=== PATIENT | female | born 1980 | race Caucasian/White ===

== ENCOUNTER 2017-11-17 23:02 | Emergency (ER) | payer OTHER ==
[~2017-11-17] VITALS: Ht 177.8 cm; Wt 149.7 kg
[~2017-11-17 23:02] MED LIST: ATENOLOL 100MG100 MG PO; IBUPROFEN 800800 M1 PO; NORCO 5-325 TA1 EACH PO; ULTRAM 50MG TAB50 MG PO
[2017-11-17] MEDS ORDERED: ATENOLOL 25 MG25 M1 PO (23:05)
[2017-11-17] MEDS ORDERED: WELLBUTRIN SR100 MG PO (23:05)
[2017-11-17] MEDS ORDERED: HYDROCHLOROTHIA25 M2 PO (23:05)
[2017-11-17] MEDS ORDERED: CLEOCIN HCL150 MG PO (23:21)
[2017-11-17] MEDS ORDERED: NORCO 5-325 TA1 EACH PO (23:21)
== END 2017-11-17 23:35 | disposition home or self-care (01) ==
LOC: ER 23:02
DX: K02.9 Dental caries, unspecified (principal); F17.210 Nicotine dependence, cigarettes, uncomplicated; Z90.710 Acquired absence of both cervix and uterus; Z90.49 Acquired absence of other specified parts of digestive tract; Z88.1 Allergy status to other antibiotic agents; Z88.8 Allergy status to other drugs, medicaments and biological substances

== ENCOUNTER 2017-12-17 01:03 | Emergency (ER) | payer OTHER ==
[~2017-12-17] VITALS: Ht 177.8 cm; Wt 145.2 kg
[~2017-12-17 01:03] MED LIST changes: +ATENOLOL 25 MG25 M1 PO; +CLEOCIN HCL150 MG PO; +HYDROCHLOROTHIA25 M2 PO; +WELLBUTRIN SR100 MG PO
[2017-12-17] MEDS ORDERED: MOBIC15 MG PO ×2 (03:04→03:06)
[2017-12-17] MEDS ORDERED: GUAIFEN-CODEINE10 ML PO ×2 (03:04→03:06)
== END 2017-12-17 03:17 | disposition home or self-care (01) ==
LOC: ER 01:03
DX: J06.9 Acute upper respiratory infection, unspecified (principal); I10 Essential (primary) hypertension; F17.210 Nicotine dependence, cigarettes, uncomplicated; Z90.49 Acquired absence of other specified parts of digestive tract; Z90.710 Acquired absence of both cervix and uterus; Z88.1 Allergy status to other antibiotic agents; Z88.8 Allergy status to other drugs, medicaments and biological substances

== ENCOUNTER 2017-12-20 07:34 | Emergency (ER) | payer OTHER ==
[~2017-12-20] VITALS: Ht 177.8 cm; Wt 145.2 kg
[~2017-12-20 07:34] MED LIST changes: +GUAIFEN-CODEINE10 ML PO; +MOBIC15 MG PO
== END 2017-12-20 09:43 | disposition home or self-care (01) ==
LOC: ER 07:34
DX: J06.9 Acute upper respiratory infection, unspecified (principal); I10 Essential (primary) hypertension; F17.210 Nicotine dependence, cigarettes, uncomplicated; Z90.710 Acquired absence of both cervix and uterus; Z90.49 Acquired absence of other specified parts of digestive tract; Z88.6 Allergy status to analgesic agent; Z88.1 Allergy status to other antibiotic agents; Z88.8 Allergy status to other drugs, medicaments and biological substances

== ENCOUNTER 2018-03-24 20:38 | Emergency (ER) | payer OTHER ==
[~2018-03-24] VITALS: Ht 177.8 cm; Wt 145.2 kg
[2018-03-24 21:12] LABS: ABSOLUTE NEUTROPHILS 4.4 thou/uL (1.4-8.2); BASOPHILS 1.5 % (0.0-2.0); EOSINOPHILS 1.6 % (0.0-3.0); HEMATOCRIT 41.3 % (37.0-47.0); MCH 31.4 pg (26.0-34.0); MCV 92.4 fL (80.0-100.0); PLATELET COUNT 231 thou/uL (150-400); POLYS 64.9 % (36.0-66.0); RBC 4.47 mil/uL (4.20-5.00); RDW 13.7 % (10.5-14.5); WBC 6.8 thou/uL (4.0-11.0)
[2018-03-24 21:20] LABS: CALCIUM 8.8 mg/dL (8.5-10.1)
[2018-03-24 21:25] LABS: ALBUMIN 3.6 g/dL (3.4-5.0); TOTAL BILIRUBIN 0.2 mg/dL (<0.1-1.0); TOTAL PROTEIN 7.6 g/dL (6.4-8.2)
[2018-03-24 22:29] LABS: URINE BILIRUBIN NEGATIVE (Negative); URINE BLOOD NEGATIVE (Negative); URINE CLARITY CLEAR; URINE COLOR YELLOW; URINE GLUCOSE-RANDOM* NEGATIVE (Negative); URINE KETONES NEGATIVE (Negative); URINE LEUKOCYTES-REFLEX NEGATIVE (Negative); URINE NITRITE-REFLEX NEGATIVE (Negative); URINE PROTEIN (DIPSTICK) NEGATIVE (Negative); URINE SPECIFIC GRAVITY >= 1.030 (1.005-1.035); URINE UROBILINOGEN 0.2 E.U./dl (0.2-1.0)
[2018-03-24] MEDS ORDERED: NAPROSYN500 MG PO (22:47)
[2018-03-24 23:50] VITALS: BP 124/67
== END 2018-03-24 23:50 | disposition home or self-care (01) ==
LOC: ER 20:38
PROVIDERS: Emergency Medicine
DX: R10.11 Right upper quadrant pain (principal); I10 Essential (primary) hypertension; Z90.49 Acquired absence of other specified parts of digestive tract; Z90.710 Acquired absence of both cervix and uterus